=== PATIENT | male | born 1970 | race Caucasian/White ===

== ENCOUNTER 2023-05-20 09:49 | Outpatient (AMB) | payer OTHER, SELFPAY ==
--- NOTE | 2023-05-20 09:51 | A.OFFVIS_ITS ---
Intake Vital Signs 3 05/20/23 09:58 Height 5 ft 11 in Weight 235 lb BMI 32.8 BP 151/78 H Blood Pressure Location Rt brachial Position Sitting Pulse 86 Pulse Source Pulse Oximeter Pulse Oximetry (%) 97 Oxygen Delivery Method Room Air Intake Visit Reasons: Radiculopathy Intake Note: Pain today 05/11 Pre Sales Architect Required: No Accompanied by: Self / Same As Patient Allergies No Known Allergies Allergy (Verified 05/20/23 09:58) HPI Radiculopathy 2 HPI0 Details Patient is a 52 years male with prior history of chronic low back pain, right shoulder arthritis, tension headaches and cervical DDD, presents today for initial evaluation of neck pain with radicular symptoms. Denies any past or recent trauma, injury or falls. Right hand dominant. 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 Neck pain is axial and also radiates into his left shoulder and left arm with intermittent weakness and constant numbness and tingling. He also reports shooting pain to his left biceps area with reaching his backside pocket on the left. Denies any significant significant shoulder pain bilaterally. Pain affects his daily activities, functioning, work, sleep, social interactions and quality of life. Patient has been seen to [facility] and [facility] for imaging which is noted below. Patient has been regularly participating in gentle stretching exercises for his neck and back through home exercise program, and daily use of stationary bike and walking. The neck pain is function and sleep limiting and has been resistant to conservative treatments. Denies previous spine injections or surgery. Patient denies any fever, chills, unintentional weight loss, dizziness, vision changes, shortness of breath, chest pain, gait imbalance, bladder or bowel dysfunction or saddle anesthesia. Location Neck radiates to left shoulder and left arm, no numbness or tingling Duration Chronic low back pain, neck pain >2 months Characteristics of symptom or complaint Aching, heavy, radiates, tightness, tingling, sharp, sore Aggravating or associated factors Movements, side sleeping positions, cold weather, stress Relieving factors Advil, heat therapy, rest, activity modification Treatment HEP-stretching exercises, stationary bike, walking PFSH Medical History (Updated 05/20/23 @ 12:14 by SCAR Hunter) Tension headache Degenerative disc disease, cervical Groin pain, chronic, right Back pain Abdominal pain GERD (gastroesophageal reflux disease) Surgical History (Updated 05/20/23 @ 10:24 by SCAR Hunter) H/O umbilical hernia repair (~10/2022) Hx of cholecystectomy (~10/2022) Social History Alcohol intake: current Alcohol intake frequency: holidays/special occasions only Patient Tobacco Use Status: Never used Tobacco Physical Exam Vital Signs: Last Vital Signs Pulse 86 05/20/23 09:58 BP 151/78 H 05/20/23 09:58 Pulse Ox 97 05/20/23 09:58 Oxygen Delivery Method Room Air 05/20/23 09:58 BMI result Body Mass Index 32.8 General: Appears afebrile. Alert and oriented. Mood and affect appropriate. Follows and participates in conversation appropriately. Respiratory effort is unlabored. No cough. No nasal discharge. Able to transition from sit to stand unassisted. Ambulates with bilaterally normal heel strike and toe off. Neck Other: Patient with decreased cervical ROM in all planes/especially with lateral rotation, worse on the left lateral bending and rotation. Reports increased pain with cervical extension and flexion. Spurling compression test equivocal. Pain is unchanged by Spurling maneuver with retraction. Elvey's tension test positive on left, with radiation of pain from neck to wrist and fingers. Lhermitte's test was negative. DTR intact, +2 and symmetrical. No clonus. Patient demonstrated 5/5 (slightly decreased on the left) motor strength of bilateral upper extremities. 2 + radial pulses. Significant tightness throughout left upper trapezius as well as TTP throughout bilateral upper trapezius muscles. No paravertebral tenderness over facet joints bilaterally. Neck: Yes no lymphadenopathy, Yes supple, No anterior neck swelling, No torticollis, Yes no JVD and Yes prominent dorsocervical fat pad Back/Spine/Pelvis Cervical Spine: cervical muscular tenderness, pain with cervical ROM, cervical spasm and No Cervical spine tenderness Thoracic/Lumbar Spine: thoracic and lumbar spine normal to inspection, thoraco- lumbar ROM normal, No thoracic spinal tenderness and No lumbar spinal tenderness Results Reviewed Results Reviewed: Assessment & Plan Assessment & Plan (1) Cervical radiculopathy: Code(s): M54.12 - Radiculopathy, cervical region (2) Degenerative disc disease, cervical: Code(s): M50.30 - Other cervical disc degeneration, unspecified cervical region (3) Cervical spondylosis: Code(s): M47.812 - Spondylosis without myelopathy or radiculopathy, cervical region (4) Muscle spasms of neck: Code(s): M62.838 - Other muscle spasm Plan MRI of the cervical spine to assess for neural integrity and compression and follow up on previous xray findings. Xray reports were reviewed with patient. The neck pain is function and sleep limiting and has been resistant to conservative treatments. Scripts provided for gabapentin and methocarbamol. Side effects and precautions were reviewed with patient. Continue HEP, activity modifications, NSAIDs, heat therapy, discussed work ergonimics to reduce pain. All questions and concerns have been answered and patient agreed with the plan. Patient will return to the clinic to discuss results of the MRI findings when it is done and consider interventional therapy as indicated. Orders: Orders 2 MR cervical spine wo con Today M47.812 - Spondylosis without myelopathy or radiculopathy, cervical region, M50.30 - Other cervical disc degeneration, unspecified cervical region, M54.12 - Radiculopathy, cervical region, M62.838 - Other muscle spasm Medications: New 2 gabapentin 300 mg PO BEDTIME 30 days PRN 30 caps 0RF pain M54.12 - Radiculopathy, cervical region methocarbamol 750 mg PO BID 30 days PRN 60 tabs 0RF muscle spasm M47.812 - Spondylosis without myelopathy or radiculopathy, cervical region, M50.30 - Other cervical disc degeneration, unspecified cervical region, M54.12 - Radiculopathy, cervical region, M62.838 - Other muscle spasm Coding Level of Care Code New Pt Level 4 (22020) Diagnoses Cervical radiculopathy M54.12 Degenerative disc disease, cervical M50.30 Cervical spondylosis M47.812 Muscle spasms of neck M62.838
[2023-05-20 09:58] VITALS: BP 151/78; PULSE 86; O2SAT 97; BMI 32.8
== END 2023-05-20 10:37 | disposition home or self-care (01) ==
PROVIDERS: PCP Physician Assistant Medical; Visit Provider Nurse Practitioner Family
DX: M54.12 Radiculopathy, cervical region (principal); M50.30 Other cervical disc degeneration, unspecified cervical region; M47.812 Spondylosis without myelopathy or radiculopathy, cervical region; M62.838 Other muscle spasm
CPT/HCPCS: 99204

== ENCOUNTER → 2023-05-20 09:49 | Outpatient (BNVA) | payer OTHER, SELFPAY | PROVIDERS: Visit Provider Nurse Practitioner Family ==

== ENCOUNTER 2023-11-20 07:51 | Outpatient (RCR) | payer OTHER, SELFPAY ==
--- NOTE | 2023-09-25 15:52 | MHC.PT.EP ---
[facility] [place] Office [place] [facility] [place] Office [address] Brandy Mccracken [address] [phone] F: [phone] F: [phone] F: [phone] F: [phone] Physical Therapy Plan of Care Date of Evaluation: 09/25/23 Date of Surgery: NA Diagnosis: CERVICALSPONDYLOSIS, CERVICAL DISC DEGENERATION, CERVICAL MM SPASMS Assessment: Pt IS 52 YO M REFERRED TO PT FROM PAIN MANAGEMENT ([facility]) WITH CERVICAL DISC DEGENERATION, SPONDYLOSIS. Pt REPORTS SOME HX OF NECK STIFFNESS BUT ABOUT 6 MONTHS AGO STARTED GETTING WORSE AND STARTED EXPERIENCING LIMITED ROM AND STRENGTH IN L UE. AWAITING MRI. REPORTS NO SPECIFIC SHOULDER INJURY. PRESENTS WITH LIMITED ROM L SHLDER (CAPSULAR PATTERN) AND LIMITED STRENGTH WITH PAIN AT END RANGE. Pt DOES NOT C/O PARESTHESIA AT THIS TIME. SHOULD BENEFIT FROM PT TO ADDRESS THESE ISSUES Frequency and Duration: The patient will be seen 2X/WK X 6 WKS Short Term Goals: 1. INCREASED POSTURE AWARENESS AND AWARENESS NECK/SHLDER CARE 2. INCREASED L SHLDER AROM FLEX, ABD, ER 10 DEGREES Workers' Compensation Mediator Goals: 1. I HEP WITH DC EX PLAN 2. INCREASED L SHLDER ROM AT LEAST 20 DEGREES FOR FLEX, ABD, ER 3. DECREASED L SHLDER PAIN AT LEAST 50% WITH ADLS Treatment Plan: Modalities to reduce pain, spasms and effusion. Manual therapy to restore motion and function. Therapeutic exercise to improve strength and flexibility. Neuromuscular re-education for posture and balance. Therapeutic activities to return to functional activities of daily living. Electronically signed by: SLICK LUEVANO PT Please sign and return to therapist. Thank you for your referral.
--- NOTE | 2023-12-18 15:31 | MHC.PT.DC ---
[facility] [place] Office [place] Office [place] Office [address] Brandy Mccracken [address] [phone] F: [phone] F: [phone] F: [phone] F: [phone] Physical Therapy Discharge Report Diagnosis: CERVICALSPONDYLOSIS, CERVICAL DISC DEGENERATION, CERVICAL MM SPASMS Date of Surgery: NA Date of Evaluation: 09/25/23 Date of Discharge: 11/20/23 Treatments to Date: 14 Cancellations to Date: No Shows to Date: Discharge Status: Improved Function Independent with HEP Patient Elected to Stop Discharge Summary: HAS MET MOST PT GOALS, HAS HOME PROG Electronically signed by: SLICK LUEVANO PT Please sign and return to therapist. Thank you for your referral.
== END 2023-12-18 15:31 | disposition home or self-care (01) ==
LOC: HO.PTWFD 07:51
PROVIDERS: PCP Internal Medicine; Visit Provider Nurse Practitioner Family
DX: M50.30 Other cervical disc degeneration, unspecified cervical region (principal); M62.838 Other muscle spasm; M47.812 Spondylosis without myelopathy or radiculopathy, cervical region
CPT/HCPCS: 97012; 97110; 97140; 97162; 97535